=== PATIENT | male | born 1955 | race Caucasian/White ===

== ENCOUNTER 2017-11-03 09:29 | Day surgery (SDC) | payer OTHER ==
[~2017-11-03 09:29] MED LIST: ACETAMINOPHEN 1000 MG/100 ML IVPB; GLYCOPYRROLATE 0.4 MG INJ
[2017-11-03] MEDS ORDERED: CEFAZOLIN 2 GM/50 ML (PMX) 50 ML IVPB (11:00)
[2017-11-03] MEDS ORDERED: PROPOFOL 40 ML (12:52)
[2017-11-03] MEDS ORDERED: MIDAZOLAM 1 MG/ML 2 ML INJ (12:52)
[2017-11-03] MEDS ORDERED: CEFAZOLIN 1 GM INJ (12:53)
[2017-11-03] MEDS ORDERED: PROPOFOL 20 ML (12:53)
[2017-11-03] MEDS ORDERED: LIDOCAINE 2% (SDV) 5 ML INJ (12:53)
[2017-11-03] MEDS ORDERED: ONDANSETRON 4 MG INJ (12:54)
[2017-11-03] MEDS ORDERED: FAMOTIDINE 20 MG INJ (12:54)
[2017-11-03] MEDS ORDERED: DEXAMETHASONE 4 MG/ML 1 ML INJ (12:54)
[2017-11-03] MEDS ORDERED: ALBUTEROL 0.083% (NEB) 2.5 MG/3 ML AMP HHN (13:00)
[2017-11-03] MEDS ORDERED: FENTAnyl 50 MCG/ML VIAL IV ×2 (13:00)
[2017-11-03] MEDS ORDERED: morphine (1 MG/ML) 10ML SYRINGE IV ×2 (13:00)
[2017-11-03] MEDS ORDERED: HYDROmorphONE 1 MG/5 ML IV SYRINGE IV ×2 (13:00)
[2017-11-03] MEDS ORDERED: OXYCODONE/ACETAMINOPHEN (5/325) TAB PO ×2 (13:00)
[2017-11-03] MEDS ORDERED: DIPHENHYDRAMINE 50 MG INJ IV (13:00)
[2017-11-03] MEDS ORDERED: EPHEDrine SULFATE 50 MG/5 ML SYG (13:09)
[2017-11-03] MEDS ORDERED: PHENYLephrine (100 MCG/ML) 5ML SYG ×3 (13:25→14:18)
[2017-11-03] MEDS ORDERED: HYDROCODONE/APAP (7.5/325) TAB PO (15:00)
[2017-11-03] MEDS: ONDANSETRON 4 MG INJ IV ×2 (15:40→17:08)
[2017-11-03] MEDS: MEPERIDINE 25 MG INJ IV (15:40)
[2017-11-03] MEDS: SOD CHLORIDE 0.9% 1,000 ML IV (15:47)
[2017-11-03] MEDS: LABETALOL HCL 20MG INJ IV ×2 (16:01→16:09)
== END 2017-11-03 17:17 | disposition home or self-care (01) ==
LOC: REC 09:29 → SDS 09:29
DX: N62 Hypertrophy of breast (principal); I10 Essential (primary) hypertension; E78.5 Hyperlipidemia, unspecified
CPT/HCPCS: 19303; 88307